=== PATIENT | male | born 1955 | race Two or more races ===

== ENCOUNTER 2023-07-19 15:01 | Inpatient (IN) | payer OTHER ==
[~2023-07-19] VITALS: Ht 165.1 cm; Wt 90.7 kg
[~2023-07-19 15:01] MED LIST: VASOTEC20 MG PO
[2023-07-19] MEDS ORDERED: NEURONTIN300 MG PO (15:33)
[2023-07-19] MEDS ORDERED: GLUMETZA500 MG (15:34)
[2023-07-19 18:36] LABS: HEMATOCRIT 38.1 % (39.0-48.0); HEMOGLOBIN 12.7 g/dL (13-16.00); MEAN CELL VOLUME 94.4 fL (80.0-100.00); MEAN CORPUSCULAR HEMOGLOBIN 31.4 pg (27.00-32.0); MEAN CORPUSCULAR HGB CONC 33.3 g/dl (32.0-36.0); PLATELET COUNT 183 K/uL (150-450); RED BLOOD COUNT 4.03 M/uL (4.00-6.00); RED CELL DISTRIBUTION WIDTH 14.5 % (11.5-14.5)
[2023-07-19 18:39] LABS: PH,URINE 5.5 (5.0-8.0); URINE APPEARANCE Clear; URINE BILIRRUBIN Negative (NEGATIVE); URINE BLOOD Negative; URINE COLOR Yellow; URINE GLUCOSE Negative (NEGATIVE); URINE LEUKOCYTE Negative; URINE NITRATE Negative; URINE PROTEIN 30 (NEGATIVE)
[2023-07-19 18:43] LABS: URINE EPITHELIAL CELLS 2.1 uL (0.0-38.8); URINE RBC 2.2 uL (0.0-20.8)
[2023-07-19 18:56] LABS: URINE BACTERIA 2.5 uL (0.0-1933); URINE WBC 0.9 uL (0.0-23.2)
[2023-07-19 19:02] LABS: INR 1.04; PARTIAL THROMBOPLASTIN TIME 31.8 SECONDS (22.0-34.0); PROTHROMBIN TIME 10.9 SECONDS (9.0-11.5)
[2023-07-19 19:07] LABS: ALBUMIN 3.9 gm/dL (3.4-5.0); BILIRUBIN TOTAL 0.5 mg/dL (0.3-1.2); CALCIUM 9.5 mg/dL (8.5-10.1); CREATININE SERUM 1.19 mg/dL (0.70-1.30); GFR 60.44; GLOBULINA 4.4 G/DL (2.4-3.5); TOTAL PROTEIN 8.3 gm/dL (6.4-8.2)
[2023-07-19 19:17] LABS: C-REACTIVE PROTEIN 5.72 MG/DL (0.00-0.29); POTASSIUM 4.77 mEq/L (3.5-5.1)
[2023-07-20 06:42] LABS: INR 1.06; PARTIAL THROMBOPLASTIN TIME 33.3 SECONDS (22.0-34.0); PROTHROMBIN TIME 11.1 SECONDS (9.0-11.5)
[2023-07-20 07:03] LABS: HEMATOCRIT 29.2 % (39.0-48.0); MEAN CELL VOLUME 94.9 fL (80.0-100.00); PLATELET COUNT 154 K/uL (150-450); RED BLOOD COUNT 3.08 M/uL (4.00-6.00); RED CELL DISTRIBUTION WIDTH 14.3 % (11.5-14.5)
[2023-07-20 07:04] LABS: ALBUMIN 2.7 gm/dL (3.4-5.0); ALKALINE PHOSPHATASE 101 U/L (50-136); ALT/SGPT 10 U/L (12-78); ANION GAP 12 (10.0-20.0); AST/SGOT 15 U/L (15-37); BILIRUBIN TOTAL 0.36 mg/dL (0.3-1.2); BILIRUBIN,CONJUGATED < 0.10 mg/dL (0.0-0.2); BILIRUBIN,UNCONJUGATED 0.26 mg/dL (0.0-0.6); BLOOD UREA NITROGEN 20 mg/dL (7-18); BUN CREA RATIO 19 (7.0-25.0); CALCIUM 8.6 mg/dL (8.5-10.1); CARBON DIOXIDE 24 mEq/L (21-32); CHLORIDE 110 mmol/L (98-107); CHOL HDL RATIO 2.1 (0-5.0); CHOLESTEROL 92 mg/dL (0-200); CREATININE SERUM 1.07 mg/dL (0.70-1.30); GFR 68.32; GLOBULINA 3.3 G/DL (2.4-3.5); GLUCOSE FASTING 159 mg/dL (65-100); HDL 43 mg/dl (40-60); LDL 29 mg/dl (0-130); OSMOLALITY SERUM 287 MOSM/KG (275-295); POTASSIUM 4.58 mEq/L (3.5-5.1); SODIUM 141 mmol/L (136-145); TRIGLYCERIDES 100 mg/dL (0-150); VLDL 20 (0-39)
[2023-07-20 07:06] LABS: C-REACTIVE PROTEIN 3.14 MG/DL (0.00-0.29)
[2023-07-20 07:07] LABS: HEMOGLOBIN 9.6 g/dL (13-16.00); MEAN CORPUSCULAR HEMOGLOBIN 31.1 pg (27.00-32.0)
[2023-07-20 07:12] LABS: ERYTHROCYTE SEDIMENTATION RATE 34 mm/hr
[2023-07-20 14:15] LABS: URINE APPEARANCE Clear; URINE BILIRRUBIN Negative (NEGATIVE); URINE BLOOD Negative; URINE COLOR Yellow; URINE GLUCOSE Negative (NEGATIVE); URINE LEUKOCYTE Negative; URINE NITRATE Negative; URINE PROTEIN Negative (NEGATIVE); URINE UROBILINOGEN 0.2 E.U./dl
[2023-07-20 14:22] LABS: URINE BACTERIA 0 uL (0.0-1933); URINE EPITHELIAL CELLS 0.4 uL (0.0-38.8); URINE RBC 0.4 uL (0.0-20.8); URINE WBC 0.1 uL (0.0-23.2)
[2023-07-24] MEDS ORDERED: INTESTINEX680 M2 PO (11:19)
[2023-07-24] MEDS ORDERED: PEPCID AC20 MG PO (11:19)
[2023-07-24] MEDS ORDERED: LEVOFLOXACIN750 MG PO (11:19)
== END 2023-07-24 13:01 | disposition home or self-care (01) | DRG 603 ==
LOC: ER 15:01 → SEC-K 22:38 → MEDI 22:38
PROVIDERS: General Practice; ADMIT Internal Medicine; ATTEND Internal Medicine
PROC: BP3 Imaging, Non-Axial Upper Bones, Magnetic Resonance Imaging (MRI) (ICD-10-PCS; principal; 2023-07-21)
DX: L03.114 Cellulitis of left upper limb (principal); L02.512 Cutaneous abscess of left hand; B95.61 Methicillin susceptible Staphylococcus aureus infection as the cause of diseases classified elsewhere; S61.442A Puncture wound with foreign body of left hand, initial encounter; I10 Essential (primary) hypertension; E78.5 Hyperlipidemia, unspecified; E11.9 Type 2 diabetes mellitus without complications; Z79.4 Long term (current) use of insulin
CPT/HCPCS: 73218

== ENCOUNTER 2025-01-02 23:02 | Emergency (ER) | payer OTHER ==
[~2025-01-02] VITALS: Ht 165.1 cm; Wt 78.5 kg
[~2025-01-02 23:02] MED LIST changes: +GLUMETZA500 MG; +INTESTINEX680 M2 PO; +LEVOFLOXACIN750 MG PO; +NEURONTIN300 MG PO; +PEPCID AC20 MG PO
[2025-01-03] MEDS ORDERED: HYOSCYAMINE SULFATE 0.125 MG TAB.SUBL SL ONE (02:00)
[2025-01-03] MEDS ORDERED: HYOSCYAMINE SULFATE 0.125 MG TAB.SUBL ONE (02:12)
[2025-01-03 03:00] LABS: BASO % 0.9 % (0.1-1.2); EOS # 0.19 (0.04-0.54); EOS % 3.2 % (0.7-7.0); HEMATOCRIT 31.9 % (40.1-51.0); HEMOGLOBIN 10.4 g/dL (13.7-17.5); LYMPH # 1.47 (1.18-3.74); LYMPH % 25.1 % (19.3-53.1); MEAN CORPUSCULAR HEMOGLOBIN 30.2 pg (25.6-32.2); MONO # 0.92 (0.24-0.82); NEUT # 3.19 (1.56-6.13); NEUT % 54.6 % (34.0-71.1); PLATELET COUNT 289 K/uL (163-369); RED BLOOD COUNT 3.44 M/uL (4.63-6.08)
[2025-01-03 03:01] LABS: MONO % 15.7 % (4.7-12.5)
[2025-01-03 03:29] LABS: ALBUMIN 3.1 gm/dL (3.4-5.0); BILIRUBIN TOTAL 0.39 mg/dL (0.3-1.2); CALCIUM 8.7 mg/dL (8.5-10.1); CREATININE SERUM 1.53 mg/dL (0.70-1.30); GFR 45.09; GLOBULINA 5.1 G/DL (2.4-3.5); POTASSIUM 4.68 mEq/L (3.5-5.1); TOTAL PROTEIN 8.2 gm/dL (6.4-8.2)
[2025-01-03 04:21] LABS: INR 1.21; PARTIAL THROMBOPLASTIN TIME 31.6 SECONDS (22.0-34.0)
== END 2025-01-03 06:27 | disposition home or self-care (01) ==
LOC: ER 23:02
DX: R10.9 Unspecified abdominal pain (principal)